=== PATIENT | male | born 1960 | race Caucasian/White ===

== ENCOUNTER 2017-02-23 16:57 | Emergency (ER) | payer BC ==
--- NOTE | 2017-02-23 17:13 | EDM.PDOC ---
ED HPI GENERAL MEDICAL PROBLEM - General Chief Complaint: Gastrointestinal Problem Stated Complaint: food stuck in esophagus Time Seen by Provider: 02/23/17 17:05 Source of Information: Reports: Patient, Family, RN, RN Notes Reviewed History Limitations: Reports: No Limitations - History of Present Illness INITIAL COMMENTS - FREE TEXT/NARRATIVE: Patient presents to the emergency room at [facility] complaining of food being stuck in his esophagus. The patient states that symptoms began about one half hour ago. The patient states he was at home eating steak when the symptoms began. The patient has tried drinking water to help push the food bolus through. He did not have any success. The patient states his symptoms are very uncomfortable. Otherwise no other concerns. Onset: Today Onset Date: 02/23/17 Onset Time: 16:30 Duration: Constant Chest Pain Score (Numeric/FACES): 5 - Related Data Allergies Allergy/AdvReac Type Severity Reaction Status Date / Time No Known Drug Allergies Allergy Cannot Verified 02/23/17 17:33 Remember enviromental allergies Allergy Itching Uncoded 06/24/14 15:12 Home Meds: Home Meds Aspirin [Adult Low Dose Aspirin EC] 81 mg PO DAILY 06/24/14 [History] Enalapril/Hydrochlorothiazide [Vaseretic 10-25 MG] 1 tab PO DAILY 06/24/14 [ History] Meloxicam [Meloxicam] 1 tab PO DAILY PRN 06/24/14 [History] Sildenafil [Viagra] 50 mg PO DAILY PRN 06/24/14 [History] atorvaSTATin Calcium [Atorvastatin Calcium] 1 tab PO DAILY 06/24/14 [History] Social & Family History - Tobacco Use Smoking Status *Q: Never Smoker Second Hand Smoke Exposure: No - Alcohol Use Days Per Week of Alcohol Use: 5 Number of Drinks Per Day: 2 Total Drinks Per Week: 10 - Recreational Drug Use Recreational Drug Use: No Drug Use in Last 12 Months: No ED ROS GENERAL - Review of Systems Review Of Systems: See Below Constitutional: Denies: Fever, Chills, Weakness Respiratory: Denies: Shortness of Breath, Cough Cardiovascular: Denies: Chest Pain, Palpitations GI/Abdominal: Reports: Difficulty Swallowing, Vomiting. Denies: Abdominal Pain , Nausea Skin: Reports: No Symptoms Neurological: Reports: No Symptoms ED EXAM, GI/ABD - Physical Exam Exam: See Below Exam Limited By: No Limitations General Appearance: Alert, No Apparent Distress Respiratory/Chest: No Respiratory Distress, Lungs Clear, Normal Breath Sounds Cardiovascular: Regular Rate, Rhythm GI/Abdominal Exam: Normal Bowel Sounds, Soft, Non-Tender, Other (apparent food bolus in esophagus given vomiting of saliva and unable to drink water ( immediately regurgitated)) Neurological: Alert, Oriented Skin Exam: Warm, Dry, Intact, Normal Color, No Rash Course - Vital Signs Last Recorded V/S: Last Vital Signs Temp 35.3 C 02/23/17 17:00 Pulse 90 02/23/17 17:00 Resp 16 02/23/17 17:00 BP 140/79 02/23/17 17:00 Pulse Ox 95 02/23/17 17:00 - Orders/Labs/Meds Orders: Active Orders 24 hr Category Date Time Status Chest 2V [CR] Stat Exams 02/23/17 17:15 Taken Meds: Medications Discontinued Medications Generic Name Dose Route Start Last Admin Trade Name Freq PRN Reason Stop Dose Admin Glucagon 1 mg 02/23/17 17:15 02/23/17 17:28 Glucagen IM 02/23/17 17:16 1 mg ONETIME ONE Administration Departure - Departure Time of Disposition: 18:01 Disposition: Home, Self-Care 01 Condition: Good Clinical Impression: Esophageal foreign body Qualifiers: Encounter type: initial encounter Qualified Code(s): T18.108A - Unspecified foreign body in esophagus causing other injury, initial encounter - Discharge Information Referrals: Caryl Weiss, [employer]EDING ASSISTANT [Primary Care Provider] - Forms: ED Department Discharge Additional Instructions: 1. Stay well hydrated and rest 2. It may be uncomfortable to eat/drink for the next couple days 3. May use Tylenol/Advil as needed for discomfort 4. Chew foods more thoroughly 5. See your Primary as symptoms warrant - Problem List Review Problem List Initiated/Reviewed/Updated: Yes - My Orders Last 24 Hours: My Active Orders 02/23/17 17:15 Chest 2V [CR] Stat - Assessment/Plan Last 24 Hours: My Active Orders 02/23/17 17:15 Chest 2V [CR] Stat Assessment:: Esophagus foreign body Plan: Patient will be given IM Glucagen and sips of Cola and see if this will dislodge the food bolus stuck in esophagus. 02/23/2017 18:00 Reassessment of patient reveals success with interventions. Patient states the food bolus was dislodged and he is able to drink without vomiting.
[2017-02-23] MEDS ORDERED: Glucagon,Human Recombinant 1 MG Vial IM ONE (17:15)
[2017-02-23 17:40] VITALS: BP 140/79
== END 2017-02-23 18:11 | disposition home or self-care (01) ==
LOC: VM.ED 16:57
DX: T18.128A Food in esophagus causing other injury, initial encounter (principal); Z91.09 Other allergy status, other than to drugs and biological substances; Z79.82 Long term (current) use of aspirin; Z79.899 Other long term (current) drug therapy
CPT/HCPCS: 71020; 96372; 99283; J1610

== ENCOUNTER 2017-06-24 10:03 | Day surgery (SDC) | payer BC ==
[~2017-06-24 10:03] MED LIST: Lactated Ringers 1,000 ML IV SCH
[2017-06-24] MEDS ORDERED: Propofol 200 MG/20 ML SDV ONE ×3 (11:32→11:52)
[2017-06-24] MEDS ORDERED: fentaNYL 100 MCG/2 ML SDV ONE (11:32)
[2017-06-24 13:31] VITALS: BP 137/69
--- NOTE | 2017-06-25 08:20 | OR ---
PRE AND POST: History of colon polyps. PROCEDURE PERFORMED: Colonoscopy. INDICATION: The patient is here for a repeat colonoscopy. He had a colonoscopy 3 years ago where he was found to have polyps. PROCEDURE IN DETAIL: This was done in the procedure room. Sedation was given per Anesthesia. He was placed in left lateral position. First, rectal exam was done that was normal. Scope was introduced into the rectum, slowly advanced into the rectum, sigmoid, descending, transverse, and ascending colon until the cecum was reached. Upon reaching the cecum, the scope was slowly withdrawn looking at all mucosal surfaces on the way out. No mucosal abnormalities, lesions, or polyps were noted. FINAL DIAGNOSIS: Normal colonoscopy. PLAN: We recommend repeat colonoscopy in 10 years. BKD: 06/24/2017 12:11:44 MODL: 06/24/2017 22:06:20 /[id number]
== END 2017-06-24 13:00 | disposition home or self-care (01) ==
LOC: VM.SDS 10:03
PROVIDERS: ATTEND Surgery
DX: Z12.11 Encounter for screening for malignant neoplasm of colon (principal); G47.33 Obstructive sleep apnea (adult) (pediatric); I10 Essential (primary) hypertension; E78.5 Hyperlipidemia, unspecified; N52.9 Male erectile dysfunction, unspecified; F32.9 Major depressive disorder, single episode, unspecified; Z99.89 Dependence on other enabling machines and devices; Z86.010 Personal history of colon polyps; Z79.899 Other long term (current) drug therapy; Z79.82 Long term (current) use of aspirin; Z88.8 Allergy status to other drugs, medicaments and biological substances
CPT/HCPCS: 45378; J2704; J3010; J7120

== ENCOUNTER 2022-07-17 13:42 | Emergency (ER) | payer BC ==
[2022-07-17 14:20] VITALS: BP 141/93; PULSE 82
[2022-07-17] MEDS ORDERED: MULTIVITAMINS PO ONE ×8 (14:32→14:54)
[2022-07-17] MEDS ORDERED: MAGNESIUM OXIDE PO ONE ×8 (14:32→14:54)
[2022-07-17] MEDS ORDERED: FOLIC ACID PO ONE ×8 (14:32→14:54)
[2022-07-17] MEDS ORDERED: THIAMINE PO ONE ×8 (14:32→14:54)
[2022-07-17] MEDS: Lactated Ringers 1,000 ML IV ONE (14:45)
[2022-07-17 14:57] LABS: BARBITURATE SCREEN,URINE NEGATIVE (NEGATIVE); BENZODIAZEPINES SCREEN,URINE NEGATIVE (NEGATIVE); BUPRENORPHINE SCREEN,URINE NEGATIVE (NEGATIVE); METHAMPHETAMINE SCREEN, URINE NEGATIVE (NEGATIVE); THC SCREEN,URINE 50 NG/ML NEGATIVE (NEGATIVE)
[2022-07-17] MEDS: FOLIC ACID PO ONE ×4 (15:04)
[2022-07-17] MEDS: THIAMINE PO ONE ×4 (15:04)
[2022-07-17] MEDS: MAGNESIUM OXIDE PO ONE ×4 (15:04)
[2022-07-17] MEDS: MULTIVITAMINS PO ONE ×4 (15:04)
[2022-07-17 15:15] LABS: ANION GAP 15.1 mmol/L (5-15); CHLORIDE,CL 100 mmol/L (98-107); ESTIMATED GFR 99 mL/min (>=60); SODIUM,NA 139 mmol/L (136-145)
== END 2022-07-17 16:00 | disposition home or self-care (01) ==
LOC: VM.ED 13:42
DX: D47.3 Essential (hemorrhagic) thrombocythemia (principal); F10.220 Alcohol dependence with intoxication, uncomplicated; E46 Unspecified protein-calorie malnutrition; E78.00 Pure hypercholesterolemia, unspecified; I10 Essential (primary) hypertension; Z88.8 Allergy status to other drugs, medicaments and biological substances; Z91.048 Other nonmedicinal substance allergy status; Z79.82 Long term (current) use of aspirin; Z79.899 Other long term (current) drug therapy
CPT/HCPCS: 36415; 70450; 80053; 80305-QW; 80307; 81001; 82140; 82550; 83605; 83690; 83735; 84100; 85025; 85610; 86140; 96360; 99284; 99284-25; A9270-GY; J7120

== ENCOUNTER 2022-11-26 06:15 | Emergency (ER) | payer BC ==
[2022-11-26 06:26] VITALS: BP 147/78; PULSE 66
[2022-11-26] MEDS: Glucagon,Human Recombinant 1 MG Vial IM ONE (06:34)
== END 2022-11-26 07:30 | disposition home or self-care (01) ==
LOC: VM.ED 06:15
DX: T18.128A Food in esophagus causing other injury, initial encounter (principal); E78.00 Pure hypercholesterolemia, unspecified; I10 Essential (primary) hypertension; Z91.09 Other allergy status, other than to drugs and biological substances; Z79.82 Long term (current) use of aspirin; Z79.899 Other long term (current) drug therapy
CPT/HCPCS: 96372; 99283; 99284; J1610